=== PATIENT | male | born 1995 | race Caucasian/White ===

== ENCOUNTER 2024-01-13 16:19 | Emergency (ER) | payer OTHER, SELFPAY ==
[2024-01-13 16:21] VITALS: BP 140/91
--- NOTE | 2024-01-13 16:24 | ED.PDOC.TRB ---
ED Provider Triage
-
Patient seen by provider in Triage?: Seen in Triage
Attestation: A medical screening examination has been initiated by a qualified medical provider. Based on the assessment performed at this time, it has been determined that an emergent medical condition may exist and the patient has been informed
that further medical evaluation and possible additional diagnostic testing may be needed.
HPI: 28-year-old male with history of intellectual disability presents with mother for evaluation of but not improving left outer ear infection. Has been on multiple rounds of topical and now oral antibiotics with no improvement. Mother concerned
due to the persistent purulent and bloody discharge. He has been acting well with no concerns otherwise
GENERAL: Alert , in no apparent distress
EYE: No visual abnormalities.
NECK: Trachea midline
ENT: No visible abnormalities.
LUNGS: No acute respiratory distress
NEUROLOGICAL: Alert and oriented
SKIN: Skin intact. No visible changes.
MUSCULOSKELETAL: Moving extremities normally
PSYCH: Normal and appropriate interaction.
Assessment: Vital signs are normal, will defer labs to evaluating provider, does not grossly appear as a malignant otitis externa
This is a medical evaluation conducted in person to initiate diagnostic evaluation and provide initial therapeutics. Please see further documentation by the treating clinician.
[2024-01-13 17:13] VITALS: BMI 18.5
[2024-01-13 18:53] LABS: Glucose - Point of Care 85 mg/dl (70-99)
[2024-01-13 18:55] VITALS: BP 114/78
[2024-01-13] MEDS: CIPRO 1 DROPPERETT OTIC (19:02)
--- NOTE | 2024-01-13 19:25 | ED.GENMED ---
History of Present Illness
General
Chief Complaint: Ear Problem
Source: patient and other (mother)
Exam Limitations: other (intellectual disability)
Time Seen by Provider: 01/13/24 17:17
History of Present Illness
History of Present Illness:
Patient is a 28-year-old male with a past medical history of autism and intellectual disability who presents to the emergency department accompanied by his mother for evaluation of left ear pain and drainage. Mother reports that the patient's
symptoms initially started about a month ago. Patient went to an urgent care facility where he was prescribed ofloxacin eardrops. She reports that prior to prescribing the drops, they did irrigate the ear with water. Mother reports that the
patient had some crusting of the lobe of the ear and therefore the patient was also prescribed mupirocin to use on that area. Mother reports that they use the prescriptions as directed however there was no improvement in the patient's symptoms so
they return to the urgent care facility where the provider was concerned for an allergic reaction and treated the patient with a course of prednisone. Mother reports the patient completed the course of prednisone without any improvement in her
symptoms. She reports that about 5 days ago, the patient followed up with her primary care provider who prescribed Augmentin however mother reports no significant proving the patient symptoms prompting her emergency department visit today. Mother
reports that it looks like there is some white pus inside the patient's ear. Mother reports that there is also significant crusting on the outer portion of the patient's ear. Patient reports that it is itchy but denies significant pain. Mother
denies the patient's had fevers or chills and has been acting his usual self.
Past History
Past History
ED Past Medical History: Other (Autism, intellectual disability)
Review of Systems
Review of Systems
Allergies reviewed?: Yes
All Other Systems: Not applicable
Constitutional: Reports no symptoms
EENT: Reports no symptoms
Respiratory: Reports no symptoms
Cardiac: Reports no symptoms
ABD/GI: Reports no symptoms
: Reports no symptoms
Musculoskeletal: Reports no symptoms
Skin: Reports no symptoms
Neurological: Reports no symptoms
Endocrine: Reports no symptoms
Hematologic/Lymphatic: Reports no symptoms
Psychiatric: Reports no symptoms
Phy Exam
General Physical Exam
General Presentation: well appearing and no apparent distress
General Skin: warm and dry
General Habitus: normal
General Mental: alert
General Hydration: appears well hydrated
ENT Exam
ENT Exam: EOMI, pharynx normal, neck supple and normocephalic
Additional ENT: macerated/edematous left ear canal, dried crust at EAC, no mastoid ttp
Eye Exam
Eye Exam: PERRL, cornea clear and conjunctiva normal
Pulmonary Exam
Pulmonary Exam: lungs clear, no respiratory distress, no rales, no crackles, no rhonchi, no stridor, no wheezing and no cough
Neurological Exam
Neurological Exam: alert, oriented x3, no motor deficits and speech normal
Musculoskeletal Exam
Musculoskeletal Exam: full ROM and no edema
Skin Exam
Skin Exam: normal color, warm/dry, no rash and no petechia
Psychiatric Exam
Psychiatric Exam: normal mood/affect
Course
Orders/Labs/Results
Orders:
Orders
01/13/24 18:47
Bedside Glucose- Treatment ONCE
Ciprofloxacin HCl [Cipro] 3 dropperett OTIC NOW STA
Vital Signs
Initial and Last Documented VS:
Initial Vital Signs
Temp Pulse Resp BP Pulse Ox
97.8 F 94 17 140/91 97
01/13/24 16:21 01/13/24 16:21 01/13/24 16:21 01/13/24 16:21 01/13/24 16:21
Last Documented Vital Signs
Temp Pulse Resp BP Pulse Ox
97.8 F 72 16 114/78 100
01/13/24 16:21 01/13/24 18:55 01/13/24 18:55 01/13/24 18:55 01/13/24 18:55
*Critical Care Note
Total Time (30-74mins, 75-104mins- exclusive of procedures): Not Applicable
Update Note
Update Note:
28-year-old male brought to the emergency department mother for evaluation of persistent left ear pain/itching/drainage. Mother denies any fevers or chills. On arrival, patient is mildly hypertensive, afebrile. On exam, patient is well-appearing,
he is in no acute distress, he does have evidence of otitis externa. Suspect that the initial course of ofloxacin was not successful due to the edema of the patient's ear canal. Therefore, I placed a Angela ear wick today and instilled ciprofloxacin
otic. Will prescribe Ciprodex for patient to use as an outpatient. Patient was also prescribed a course of oral ciprofloxacin only to take if symptoms do not improve with the otic ciprofloxacin, after discussion of risks and benefits. Mother
already has outpatient follow-up scheduled with ENT next month which she was encouraged to keep. Patient is stable for discharge to home. Patient and mother educated return precautions, they expressed understanding of the plan and agreed.
ED Attending Note
-
Portions of this chart may have been created with voice recognition software.� Occasional wrong word or��sound alike� substitutions may have occurred due to the inherent limitations of voice recognition software.
Discharge Plan
Departure
Patient Disposition: Home (Routine Discharge)
Date of Disposition: 01/13/24
Time of Disposition: 19:22
Patient with high blood pressure during this ER visit?: No
Condition: Good
Covid-19: Not Applicable
Discharge Problem:
Acute Otitis Externa
Instructions: Outer Ear Infection (DC)
Prescriptions:
New
ciprofloxacin-dexamethasone 0.3-0.1 % drops,suspension
4 drp otic (ear) BID 10 Days Qty: 7.5 0RF
ciprofloxacin HCl 500 mg tablet
500 mg PO BID 7 Days Qty: 14 0RF
Referrals:
Kumar Ayala MD [Family Provider] - Follow up in 2-3 days (Call for follow-up appointment)
Activity Restrictions/Additional Instructions:
You were seen in the emergency department for evaluation of an outer ear infection. You have been prescribed eardrops, please use these exactly as directed. You had an ear wick placed today, this should fall out on its own in the next few days.
Please throw it out after it falls out, it does not need to be replaced. If symptoms do not improve, please take the oral antibiotics that were prescribed. Please ensure that you follow-up with your primary care provider as well as ENT as
scheduled. Please turn to the emergency department for evaluation of severe pain, swelling, redness, fever greater than 100.4 �F, warfarin with a worsening or concerning symptoms.
Interventions
Interventions:
*Risk Screen - Suicide Last Done: 01/13/24 17:13
*General Assessment Last Done: 01/13/24 16:27
*Neglect/Abuse Screening Last Done: 01/13/24 17:13
ED- Fall Risk Assessment Last Done: 01/13/24 17:13
*ED COVID-19 Vaccine History Last Done: 01/13/24 17:13
*Nursing Disposition Last Done: 01/13/24 19:30
Discharge Date and Time
Discharge Date/Time: 01/13/24 19:31
Print Language: [place]
== END 2024-01-13 19:31 | disposition home or self-care (01) ==
LOC: EMR 16:19
PROVIDERS: EMERGENCY PHYSICIAN Emergency Medicine; FAMILY PHYSICIAN Internal Medicine
DX: H60.502 Unspecified acute noninfective otitis externa, left ear (principal); L29.9 Pruritus, unspecified; F79 Unspecified intellectual disabilities; F84.0 Autistic disorder
CPT/HCPCS: 99283; 82962